=== PATIENT | female | born 1935 | race Caucasian/White ===

== ENCOUNTER 2018-10-23 12:21 | Emergency (ER) | payer MEDICARE ==
[~2018-10-23] VITALS: Ht 154.9 cm; Wt 68.0 kg
[2018-10-23 13:30] LABS: HEMATOCRIT 38.9 % (37.0-47.0); HEMOGLOBIN 12.8 g/dl (12.0-16.0); IMMATURE GRANULOCYTES 0.9 % (0.0-5.0); MEAN CELL VOLUME 95.3 fL CALC (80.0-100.0); MEAN CORPUSCULAR HGB 31.4 pG CALC (26.0-32.0); MEAN CORPUSCULAR HGB CONC 32.9 g/L CALC (32.0-36.0); NEUT# 7.69 thou/uL (2.00-7.15); RED BLOOD COUNT 4.08 mill/uL (4.20-5.60); RED CELL DISTRI WIDTH 12.2 % (11.5-15.5)
[2018-10-23 13:32] LABS: ALBUMIN 4.2 g/dL (3.2-5.0); ALKALINE PHOSPHATASE 68 u/l (38-126); ANION GAP 16 (6-22 (CALC)); BILIRUBIN, TOTAL 0.8 mg/dL (0.0-1.4); BUN 22 mg/dL (8-23); BUN/CREATININE RATIO 21 (12-20 (CALC)); CARBON DIOXIDE 22 mmol/l (22-30); CHLORIDE 105 mmol/l (95-108); CREATININE 1.1 mg/dL (0.5-1.0); GFR 48 ML/MIN (>=60 (CALC)); GFR FOR AFR.AMER. 58 ML/MIN (>=60 (CALC)); LIPASE 71 u/l (23-300); SGOT/AST 17 u/l (9-36); SODIUM 139 mmol/l (137-146); TOTAL PROTEIN 6.8 g/dL (6.3-8.2)
[2018-10-23 13:43] LABS: MYOGLOBIN 40 ng/mL (0 - 62)
[2018-10-23] MEDS ORDERED: LISINOP/HCTZ1 TA1 PO (13:55)
[2018-10-23] MEDS ORDERED: TRIMETHOPRIM100 MG PO (13:55)
[2018-10-23] MEDS ORDERED: ASPIRIN EC LOW81 MG PO (13:55)
[2018-10-23] MEDS ORDERED: RANITIDINE150 M1 PO (13:56)
[2018-10-23] MEDS ORDERED: CRANBERRY250 M1 PO (13:57)
[2018-10-23] MEDS ORDERED: CALCIUM CITRATE1 TAB PO (13:57)
[2018-10-23] MEDS ORDERED: ACIDOPHILUS PEARLS PO (13:58)
[2018-10-23] MEDS ORDERED: FISH OIL1000 MG PO (13:59)
[2018-10-23] MEDS ORDERED: CRESTOR40 MG PO (13:59)
[2018-10-23] MEDS ORDERED: METAMUCIL28 % PO (13:59)
[2018-10-23 14:49] LABS: URINE BILIRUBIN - DIPSTICK NEGATIVE (NEGATIVE); URINE BLOOD DIPSTICK NEGATIVE (NEGATIVE); URINE COLOR YELLOW; URINE GLUCOSE - DIPSTICK NEGATIVE (NEGATIVE); URINE KETONE 15 mg/dL (NEGATIVE); URINE LEUK ESTERASE NEGATIVE (NEGATIVE); URINE NITRITE - DIPSTICK NEGATIVE (Negative); URINE PROTEIN - DIPSTICK NEGATIVE (NEG-TRACE); URINE UROBILINOGEN - DIPSTICK 0.2 E.U./dL (0.2)
[2018-10-23 15:35] VITALS: BP 135/62
== END 2018-10-23 15:35 | disposition home or self-care (01) ==
LOC: ED 12:21
PROVIDERS: Emergency Medicine
DX: R55 Syncope and collapse (principal); R10.9 Unspecified abdominal pain; I10 Essential (primary) hypertension; R11.10 Vomiting, unspecified
CPT/HCPCS: Q9967